=== PATIENT | male | born 1960 | race American Indian/Alaskan Native ===

== ENCOUNTER 2016-09-29 12:01 | Inpatient (IN) | payer MEDICARE, OTHER ==
[2016-09-29] MEDS ORDERED: Acetaminophen 325 MG Tab PO PRN (12:13)
[2016-09-29] MEDS: Lactated Ringers 1,000 ML IV SCH ×2 (12:52→17:31)
[2016-09-29] MEDS: Pantoprazole 40 MG Vial IVPUSH SCH (12:52)
[2016-09-29 12:55] LABS: CHLORIDE,CL 102 mEq/L (98-106); SODIUM,NA 139 mEq/L (136-145)
[2016-09-29] MEDS ORDERED: ClonazePAM 1 MG Tab PO PRN (13:03)
[2016-09-29] MEDS: Nicotine 21 MG/24 Hr Patch TRDERM SCH (13:27)
[2016-09-29] MEDS ORDERED: Magnesium Sulfate (4.06 MEQ/ML) 1 GM/2 ML SDV IM ONE (16:22)
[2016-09-29] MEDS: Tiotropium Inhaler 18 MCG Inhalation Powder Cap Kit of 5 INH SCH (17:30)
[2016-09-29] MEDS: Pregabalin 25 MG Cap PO SCH (21:14)
[2016-09-29] MEDS: Mirtazapine 15 MG Tab PO SCH (21:14)
[2016-09-29] MEDS: Docusate Sodium 100 MG Cap PO SCH (21:14)
[2016-09-29] MEDS: Formoterol/Mometasone 100-5 MCG 8.8 GM Inhaler IH SCH (21:15)
[2016-09-30] MEDS: Lactated Ringers 1,000 ML IV SCH (01:16)
[2016-09-30] MEDS: Furosemide 40 MG Tab PO SCH (07:50)
[2016-09-30] MEDS: Docusate Sodium 100 MG Cap PO SCH ×2 (07:50→19:49)
[2016-09-30] MEDS: DULoxetine 30 MG Cap PO SCH (07:50)
[2016-09-30] MEDS: atorvaSTATin 10 MG Tab PO SCH (07:50)
[2016-09-30] MEDS: Nicotine 21 MG/24 Hr Patch TRDERM SCH (07:50)
[2016-09-30] MEDS: Pantoprazole 40 MG Vial IVPUSH SCH (07:52)
[2016-09-30] MEDS ORDERED: Diltiazem 120 MG Cap.CD PO SCH (08:00)
[2016-09-30] MEDS ORDERED: Sodium Chloride 0.9% 10 ML Syringe FLUSH PRN (08:38)
--- NOTE | 2016-09-30 09:22 | PN ---
DATE: 09/30/2016 S: Lalo Mac come in with lightheaded yesterday, was very bradycardic, admitted to the hospital, placed on telemetry, metoprolol was stopped. O: GENERAL: On examination this morning, the patient is alert, orientated. VITAL SIGNS: Pulse is 53, blood pressure is low on examination. NECK: Supple. CHEST: Clear. CARDIAC: Regular. He also has some tenderness over his mid thoracic spine that has given him lot of trouble. ABDOMEN: Soft. No palpable mass or tenderness. ASSESSMENT: 1. TACHYBRADY SYNDROME SECONDARY WITH ATRIAL FIBRILLATION. 2. LOW MAGNESIUM. P: We will add 50 mg magnesium daily. I am going to drop his Cardizem down to CD 180, get some stool guaiacs on him, have PT see about his back, get him up and move around today. FENG/ADA /[id number]
[2016-09-30] MEDS: Diltiazem 180 MG Cap.CD PO SCH (09:28)
[2016-09-30] MEDS: Formoterol/Mometasone 100-5 MCG 8.8 GM Inhaler IH SCH ×2 (14:49→20:21)
[2016-09-30] MEDS: Tiotropium Inhaler 18 MCG Inhalation Powder Cap Kit of 5 INH SCH (16:00)
[2016-09-30] MEDS: Mirtazapine 15 MG Tab PO SCH (19:49)
[2016-09-30] MEDS: Pregabalin 25 MG Cap PO SCH (19:49)
[2016-10-01] MEDS: Pantoprazole 40 MG Vial IVPUSH SCH (08:01)
[2016-10-01] MEDS: Nicotine 21 MG/24 Hr Patch TRDERM SCH (08:01)
[2016-10-01] MEDS: DULoxetine 30 MG Cap PO SCH (08:02)
[2016-10-01] MEDS: Furosemide 40 MG Tab PO SCH (08:02)
[2016-10-01] MEDS: Docusate Sodium 100 MG Cap PO SCH (08:03)
[2016-10-01] MEDS: atorvaSTATin 10 MG Tab PO SCH (08:03)
[2016-10-01] MEDS: Diltiazem 180 MG Cap.CD PO SCH (08:03)
--- NOTE | 2016-10-01 12:10 | DISCH ---
HOSPITAL COURSE: Lalo Mac came in with tachy-ernestine syndrome, short of breath, placed on telemetry, had lot difficult bradycardia, adjust his medications around. I stopped his metoprolol, decreased his Cardizem to 180. Blood pressure and pulse at the time of discharge were good. OBJECTIVE: NECK: Supple. CHEST: Clear. CARDIAC: Regular. EXTREMITIES: No edema. LABORATORY DATA: Lab here in the hospital; he was on low on magnesium, so we started supplementing his magnesium with 500. Hemoglobin little bit low and creatinine 1.9, which will be followed. Troponins were good. Urinalysis was good. The TSH was good. DISPOSITION: The patient is now discharged home. He will have a 24-hour Holter monitor. I will see him back in next week for panel 8 magnesium. DISCHARGE MEDICATIONS: As per hospital minus Protonix. DISCHARGE DIAGNOSIS: 1. TACHYBRADY SYNDROME WITH ASSOCIATED ATRIAL FIBRILLATION. 2. LOW MAGNESIUM. 3. HYPERLIPIDEMIA. 4. HYPERTENSION. 5. DEPRESSION. FENG/ADA /[id number]
[2016-10-01 12:46] VITALS: BP 148/98
[2016-10-01] MEDS: Formoterol/Mometasone 100-5 MCG 8.8 GM Inhaler IH SCH (14:16)
== END 2016-10-01 14:00 | disposition home or self-care (01) | DRG 310 ==
LOC: CC.MS 12:01 → UNDOADMIN 12:01 → CC.MS 12:13
PROVIDERS: ADMIT General Practice; ATTEND General Practice
DX: I49.5 Sick sinus syndrome (principal); I48.91 Unspecified atrial fibrillation; J30.9 Allergic rhinitis, unspecified; M19.90 Unspecified osteoarthritis, unspecified site; J45.909 Unspecified asthma, uncomplicated; F32.9 Major depressive disorder, single episode, unspecified; F41.9 Anxiety disorder, unspecified; K21.9 Gastro-esophageal reflux disease without esophagitis; I10 Essential (primary) hypertension; E78.00 Pure hypercholesterolemia, unspecified; G47.30 Sleep apnea, unspecified; Z79.82 Long term (current) use of aspirin; I95.9 Hypotension, unspecified; E83.42 Hypomagnesemia
CPT/HCPCS: 36415; 80053; 81001; 82270; 82550; 83735; 84443; 84484; 85025; 85610; 93005; 94640; A9270-GY; C9113; J3475; J7120

== ENCOUNTER 2020-04-12 17:05 | Emergency (ER) | payer MEDICARE ==
[2020-04-12 17:09] VITALS: BP 134/73; PULSE 81
[2020-04-12 17:43] LABS: CHLORIDE,CL 99 mEq/L (98-106); SODIUM,NA 136 mEq/L (136-145)
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
== END 2020-04-12 19:40 | disposition home or self-care (01) ==
LOC: CC.ED 17:05
DX: R20.0 Anesthesia of skin (principal); I48.91 Unspecified atrial fibrillation; E78.00 Pure hypercholesterolemia, unspecified; I10 Essential (primary) hypertension; J44.9 Chronic obstructive pulmonary disease, unspecified; K21.9 Gastro-esophageal reflux disease without esophagitis; F41.9 Anxiety disorder, unspecified; F32.9 Major depressive disorder, single episode, unspecified; G62.9 Polyneuropathy, unspecified; F17.210 Nicotine dependence, cigarettes, uncomplicated; Z88.8 Allergy status to other drugs, medicaments and biological substances; Z88.6 Allergy status to analgesic agent; Z79.899 Other long term (current) drug therapy; Z79.01 Long term (current) use of anticoagulants
CPT/HCPCS: 36415; 70450; 71046; 80053; 82550; 83615; 84484; 85025; 93005; 99285-25